=== PATIENT | male | born 1965 | race Caucasian/White ===

== ENCOUNTER 2019-11-14 08:01 | Day surgery (SDC) | payer BC ==
[2019-11-13 14:14] VITALS: BMI 27.3
[2019-11-14] MEDS ORDERED: LIDOCAINE HCL/PF 2% SDV 5ML VIAL ONE (08:08)
[2019-11-14] MEDS ORDERED: PROPOFOL 20 ML ONE ×3 (08:08)
[2019-11-14 09:52] VITALS: TEMP 97.9
[2019-11-14 09:54] VITALS: BP 108/75; PULSE 74
--- NOTE | 2019-11-17 18:17 | PATH ---
Surgical Pathology Report Patient Name: TIN KATZ [facility]. Rec. #: [id number] /Age/Gender: 1965 (Age: 54) / M Account: [id number] Location: [facility] Taken: 11/14/2019 Received: 11/14/2019 Reported: 11/17/2019 Physicians: Woody Almeida M.D. Specimen(s) Received A: TERMINAL ILEUM B: ASCENDING COLON C: DESCENDING COLON Clinical History History of Crohn's Postoperative diagnosis: Rule out Crohn's, hemorrhoids Final Diagnosis A. TERMINAL ILEUM, BIOPSY: ILEAL MUCOSA SHOWING PROMINENT REACTIVE LYMPHOID AGGREGATES. NEGATIVE FOR ILEITIS. B. ASCENDING COLON, BIOPSY: COLONIC MUCOSA SHOWING SMALL BENIGN/REACTIVE LYMPHOID AGGREGATE. NEGATIVE FOR COLITIS. C. DESCENDING COLON, BIOPSY: COLONIC MUCOSA SHOWING SMALL BENIGN/REACTIVE LYMPHOID AGGREGATE. NEGATIVE FOR COLITIS. Comment: Features suggestive of inflammatory bowel disease/crohn's disease are not identified in these biopsies. Electronically Signed Evelyn Berrios M.D. Gross Description A. Received in formalin, labeled "biopsy terminal ileum" are 2 he, irregular portions of soft tissue averaging 0.3 cm. in greatest dimension. The specimens are submitted in toto in one cassette. B. Received in formalin, labeled "biopsy ascending colon" are 2 he, irregular portions of soft tissue measuring 0.2 and 0.3 cm. in greatest dimension. The specimens are submitted in toto in one cassette. C. Received in formalin, labeled "biopsy descending colon" are 2 he, irregular portions of soft tissue measuring 0.3 and 0.8 cm. in greatest dimension. The specimens are submitted in toto in one cassette. 11/15/2019 [facility]11/15/2019
== END 2019-11-14 09:57 | disposition home or self-care (01) ==
LOC: FASU-ENDO 08:01
PROVIDERS: ATTEND Internal Medicine Gastroenterology
PROC: 0DBM8ZX Excision of Descending Colon, Via Natural or Artificial Opening Endoscopic, Diagnostic (ICD-10-PCS; 2019-11-14)
PROC: 0DBK8ZX Excision of Ascending Colon, Via Natural or Artificial Opening Endoscopic, Diagnostic (ICD-10-PCS; principal; 2019-11-14 08:52)
DX: Z87.19 Personal history of other diseases of the digestive system (principal); K63.89 Other specified diseases of intestine; K64.8 Other hemorrhoids
CPT/HCPCS: 88305-TC